=== PATIENT | male | born 1970 | race Caucasian/White ===

== ENCOUNTER 2017-05-15 07:15 | Emergency (ER) | payer OTHER ==
[~2017-05-15] VITALS: Ht 177.8 cm; Wt 133.0 kg
[2017-05-15 10:03] VITALS: BP 138/100
== END 2017-05-15 10:04 | disposition home or self-care (01) ==
LOC: EME 07:15
DX: R04.0 Epistaxis (principal); J30.2 Other seasonal allergic rhinitis; E03.9 Hypothyroidism, unspecified; K21.9 Gastro-esophageal reflux disease without esophagitis; Z88.6 Allergy status to analgesic agent
CPT/HCPCS: 99281; 99283